=== PATIENT | male | born 1935 | race Caucasian/White ===

== ENCOUNTER 2019-05-04 10:12 | Emergency (ER) | payer OTHER ==
[2019-05-04 10:26] VITALS: BP 162/90; PULSE 70; TEMP 98.2; BMI 25.9
--- NOTE | 2019-05-04 10:44 | PDOC ---
History of Present Illness - General Chief Complaint: Injury Stated Complaint: RT FOOT PAIN / FALL Time Seen by Provider: 05/04/19 10:32 History Source: Patient Exam Limitations: Clinical Condition - History of Present Illness Initial Comments: 05/04/19 10:35 Patient with past medical history of cardiomyopathy on Eliquis presented with complaint of pain and swelling with bruising to lateral aspect of right midfoot status post twisting foot while walking in the house and falling. Patient denies hitting head or loss of consciousness. Patient denies pain anywhere else and only have mild pain to lateral aspect of right foot which is worse with ambulation. Patient has not taken anything for pain. Denies problem with ambulation. Denies any other symptoms Occurred: reports: other (3 days) Past History - Past Medical History Allergies/Adverse Reactions: Allergies Allergy/AdvReac Type Severity Reaction Status Date / Time No Known Allergies Allergy Verified 07/06/14 07:58 Home Medications: Ambulatory Orders Atorvastatin Ca [Lipitor -] 40 mg PO ACDIN 07/02/14 Losartan Potassium 100 mg PO ACDIN 07/02/14 Apixaban [Eliquis] 5 mg PO BID 05/04/19 Icosapent Ethyl [Vascepa] 1 gm PO BID 05/04/19 Anemia: No Asthma: No Cancer: Yes (BASAL CELL RIGHT EYE) Cardiac Disorders: Yes (MT 27 YRS AGO DURING MARATHON;TPA'D) CVA: No COPD: No CHF: No Dementia: No Diabetes: No GI Disorders: No Disorders: No HTN: Yes Hypercholesterolemia: Yes Liver Disease: No Seizures: No Thyroid Disease: No - Surgical History Abdominal Surgery: No Appendectomy: No Cardiac Surgery: No Cholecystectomy: No Lung Surgery: No Neurologic Surgery: No Orthopedic Surgery: No - Immunization History Immunization Up to Date: No - Psycho Social/Smoking Cessation Hx Smoking History: Never smoked Have you smoked in the past 12 months: No If you are a former smoker, when did you quit?: 17 YRS AGO Information on smoking cessation initiated: No Hx Alcohol Use: No Drug/Substance Use Hx: No Substance Use Type: None Hx Substance Use Treatment: No Review of Systems - Review of Systems Able to Perform ROS?: Yes Is the patient limited Azeri proficient: No Constitutional: No: Chills, Fever, Weakness HEENTM: No: Symptoms Reported, See HPI, Eye Pain, Blurred Vision, Tearing, Recent change in vision, Double Vision, Cataracts, Ear Pain, Ocular Prothesis, Ear Discharge, Nose Pain, Nose Congestion, Tinnitus, Nose Bleeding, Hearing Loss , Throat Pain, Throat Swelling, Mouth Pain, Dental Problems, Difficulty Swallowing, Mouth Swelling, Other Respiratory: No: Symptoms reported, See HPI, Cough, Orthopnea, Shortness of Breath, SOB with Exertion, SOB at Rest, Stridor, Wheezing, Productive cough, Hemoptysis, Other Cardiac (ROS): No: Symptoms Reported, See HPI, Chest Pain, Edema, Irregular Heart Rate, Lightheadedness, Palpitations, Syncope, Chest Tightness, Other ABD/GI: No: Symptoms Reported Musculoskeletal: Yes: Symptoms Reported, See HPI, Muscle Pain (Lateral side of right foot) Integumentary: Yes: Symptoms Reported, See HPI, Erythema (lateral aspect of right foot) Neurological: No: Symptoms reported, Tingling, Weakness All Other Systems: Reviewed and Negative *Physical Exam - Vital Signs Last Vital Signs Temp Pulse Resp BP Pulse Ox 98.2 F 70 16 162/90 97 05/04/19 10:23 05/04/19 10:23 05/04/19 10:23 05/04/19 10:23 05/04/19 10:23 - Physical Exam 05/04/19 10:45 GENERAL: Well developed, well nourished. Awake and alert. No acute distress. PULMONARY: No evidence of respiratory distress. MUSCULOSKELETAL : mild swelling to lateral aspect of right foot with mild tenderness to midfoot over fifth metatarsals. Mild ecchymosis over lateral aspect of right foot. No tenderness to ankle or leg. No visible deformity. SKIN: Warm and dry. Normal capillary refill. Mild ecchymosis over lateral aspect of right foot. NEUROLOGICAL: Alert, awake, appropriate. No motor deficits in the lower extremities. Gait is normal without ataxia. PSYCHIATRIC: Cooperative. Good eye contact. Appropriate mood and affect. General Appearance: Yes: Nourished, Appropriately Dressed. No: Apparent Distress Procedures - Splinting Splint Location: Right: Foot Pre-Proc Neuro Vasc Exam: normal Pre-Made Type: aircast Hand-Made Type: orthoglass Splint Type: Yes: Sugar Tong Post-Proc Neuro Vasc Exam: normal David Bandage: 4" Sling: No Complications: No Post splint xray: No Good repositioning: Yes ED Treatment Course - RADIOLOGY Radiology Studies Ordered: Category Date Time Status FOOT-RIGHT [RAD] Stat Radiology 05/04/19 10:35 Ordered Medical Decision Making - Medical Decision Making 05/04/19 10:36 Patient with past medical history of cardiomyopathy on Eliquis presented with complaint of pain and swelling with bruising to lateral aspect of right midfoot status post twisting foot while walking in the house and falling. Patient denies hitting head or loss of consciousness. Patient denies pain anywhere else and only have mild pain to lateral aspect of right foot which is worse with ambulation. Patient has not taken anything for pain. Denies problem with ambulation. Denies any other symptoms Exam significant for mild swelling to lateral aspect of right foot with mild tenderness to midfoot over fifth metatarsals. Mild ecchymosis over lateral aspect of right foot. No tenderness to ankle or leg. No visible deformity. Symptoms likely foot sprain versus less likely fracture. X-ray of right foot ordered to rule out fracture 05/04/19 11:17 X-ray of left foot shows nondisplaced fracture to base of fifth metatarsal. Patient placed on sugar tong foot splint. Patient advised to keep weight of no weightbearing to right foot and crutches provided to help with ambulation. Referral given to orthopedics for follow-up of fracture. Discharge - Discharge Information Problems reviewed: Yes Clinical Impression/Diagnosis: Fracture of fifth metatarsal bone of left foot Qualifiers: Encounter type: initial encounter Fracture type: closed Fracture alignment: nondisplaced Qualified Code(s): S92.355A - Nondisplaced fracture of fifth metatarsal bone, left foot, initial encounter for closed fracture Condition: Stable Disposition: HOME - Admission No - Follow up/Referral Referrals: René Hutchinson DO [Staff Physician] - - Patient Discharge Instructions Patient Printed Discharge Instructions: DI for Foot Fracture Additional Instructions: Your x-ray shows fracture of your fifth toe. You were placed on cast now for fracture. Refrain from stepping on right foot and use provided crutches for ambulation. Take Tylenol as needed for pain. Follow-up referred to orthopedics as soon as possible for management of fracture. Call orthopedist office today and make a follow-up appointment. - Post Discharge Activity
== END 2019-05-04 11:50 | disposition home or self-care (01) ==
LOC: JERFT 10:12
PROC: 2W3QX1Z Immobilization of Right Lower Leg using Splint (ICD-10-PCS; principal; 2019-05-04)
DX: S92.355A Nondisplaced fracture of fifth metatarsal bone, left foot, initial encounter for closed fracture (principal); W18.39XA Other fall on same level, initial encounter; Y93.01 Activity, walking, marching and hiking; Y92.038 Other place in apartment as the place of occurrence of the external cause; Y99.8 Other external cause status; I25.10 Atherosclerotic heart disease of native coronary artery without angina pectoris; I10 Essential (primary) hypertension; I42.9 Cardiomyopathy, unspecified; I25.2 Old myocardial infarction; Z79.01 Long term (current) use of anticoagulants; E78.00 Pure hypercholesterolemia, unspecified; Z85.828 Personal history of other malignant neoplasm of skin
CPT/HCPCS: 29515; 73630-TC-RT-FY; 99283-25

== ENCOUNTER 2021-06-26 12:38 | Emergency (ER) | payer OTHER ==
[2021-06-26 13:10] VITALS: BP 159/74; PULSE 77; TEMP 98.2; BMI 27.3
[2021-06-26] MEDS ORDERED: DIPHTH,PERTUSS(ACELL),TET 0.5 ML DISP.SYRIN IM ONE ×2 (14:23→14:27)
== END 2021-06-26 15:03 | disposition home or self-care (01) ==
LOC: JERFT 12:38
PROC: 0HQGXZZ Repair Left Hand Skin, External Approach (ICD-10-PCS; principal; 2021-06-26)
PROC: 3E0234Z Introduction of Serum, Toxoid and Vaccine into Muscle, Percutaneous Approach (ICD-10-PCS; 2021-06-26)
DX: S61.412A Laceration without foreign body of left hand, initial encounter (principal); W26.8XXA Contact with other sharp object(s), not elsewhere classified, initial encounter
CPT/HCPCS: 12001-25; 90471; 90715; 99283-25

== ENCOUNTER 2021-07-10 11:19 | Emergency (ER) | payer OTHER ==
[2021-07-10 11:34] VITALS: BP 189/78; PULSE 70; TEMP 97.9; BMI 25.8
== END 2021-07-10 13:16 | disposition home or self-care (01) ==
LOC: JERFT 11:19
DX: Z48.02 Encounter for removal of sutures (principal)
CPT/HCPCS: 99281-25

== ENCOUNTER 2021-09-10 20:25 | Emergency (ER) | payer OTHER ==
[2021-09-10 20:36] VITALS: BP 160/91; PULSE 91; TEMP 98.1; BMI 58.6
== END 2021-09-10 23:55 | disposition left against medical advice (07) ==
LOC: JER 20:25
DX: N50.1 Vascular disorders of male genital organs (principal)
CPT/HCPCS: 99281-25